=== PATIENT | female | born 1970 | race African-American/Black ===

== ENCOUNTER 2024-01-14 12:13 | Emergency (ER) | payer OTHER ==
[2024-01-14 12:41] LABS: Bilirubin Neg (Negative); Blood, Urine 250 (Negative); Clarity Cloudy (Clear); Glucose, Urine (Dipstick) Normal (Negative); Ketone, Urine Negative (Negative); Leukocyte 25 (Negative); Nitrite Negative (Negative); Protein, Urine (Dipstick) 30 mg/dl (Neg-Trace); Urobilinogen Normal mg/dL (Less than 2)
[2024-01-14 13:05] LABS: #Basophils 0.04 10x3/uL (0.0-0.2); #Eosinphils 0.02 10x3/uL (0.0-0.5); #Monocytes 0.39 10x3/uL (0.0-1.1); #Neutrophils 12.49 10x3/uL (1.5-8.4); %Basophils 0.3 % (0.0-2.0); %Eosinophils 0.1 % (0.0-6.0); %Lymphocytes 6.2 % (18.0-47.0); %Monocytes 2.8 % (0.0-10.0); %Neutrophils 90.3 % (40.0-75.0); Hematocrit 35.7 % (34.9-44.5); Hemoglobin 12.4 g/dL (12.0-15.5); Mean Corpuscular HGB CONC 34.7 g/dL (32.0-36.0); Mean Corpuscular Hemoglobin 31.2 pg (27.0-33.0); Mean Corpuscular Volume 89.7 fL (81.6-98.3); Mean Platelet Volume 9.8 fL (7.4-10.4); Platelet Count 279 10x3/uL (150-450); RBC Distribution Width 13.9 % (11.5-14.5); Red Blood Cell (RBC) Count 3.98 10x6/uL (3.90-5.03); White Blood Cell (WBC) Count 13.8 10x3/uL (3.5-10.5)
[2024-01-14 13:14] LABS: Bacteria/HPF 2+ HPF (None Seen); CAUTI Indications for Culture Pelvic or flank pain; RBC/HPF Greater than 50 HPF (0-3); Transitional Epithelial 0-3 HPF (None Seen)
[2024-01-14 13:16] LABS: Urine Culture Reflex Yes Yes
[2024-01-14 13:17] LABS: ALT (SGPT) 18 U/L (8-55); AST (SGOT) 27 U/L (5-34); Albumin 3.9 g/dL (3.5-5.0); Alkaline Phosphatase 86 U/L (40-110); Anion Gap 17 mmol/L (10-20); BUN (Urea Nitrogen) 13 mg/dL (9.8-20.1); Bilirubin, Total 0.6 mg/dL (0.2-1.2); Calc. Creatinine Clearance 0 mL/min (70-130); Calcium 9.3 mg/dL (7.8-10.44); Carbon Dioxide 25 mmol/L (22-29); Chloride 100 mmol/L (98-107); Estimated GFR 62; Globulin 4.2 g/dL (2.4-3.5); Glucose 128 mg/dL (70-105); Protein, Total 8.1 g/dL (6.0-8.3); Sodium 139 mmol/L (136-145)
[2024-01-14] MEDS ORDERED: Ondansetron PF 4 MG/2 ML Vial ONE (13:26)
[2024-01-14] MEDS ORDERED: Ketorolac Tromethamine 30 MG (1 mL) VIAL ONE (13:26)
[2024-01-14] MEDS ORDERED: fentaNYL 50 mcg/mL 1 mL Vial ONE (13:26)
[2024-01-14] MEDS ORDERED: Potassium Chloride 20 MEQ TAB ONE (14:29)
== END 2024-01-14 15:09 | disposition home or self-care (01) ==
LOC: CSHERS 12:13
DX: N20.1 Calculus of ureter (principal); F17.290 Nicotine dependence, other tobacco product, uncomplicated
CPT/HCPCS: 36415; 74176; 80053; 81001; 83690; 85025; 87077; 87086; 87186; 96361; 96374; 96375; J1885; J2405; J3010